=== PATIENT | male | born 1965 | race Caucasian/White ===

== ENCOUNTER 2016-07-01 11:54 | Emergency (ER) | payer MEDICAID ==
--- NOTE | 2016-07-01 12:54 | DX ---
Right thumb 3 views HISTORY: Pain following trauma 3 days ago. FINDINGS: Sesamoid bone at the radial side of the MCP joint is hypertrophied. No fracture or dislocat ion. No radiopaque foreign body. IMPRESSION: Negative.
[2016-07-01] MEDS ORDERED: ERYTHROMYCIN 0.5% 1 GM OPHT.OINT EACHEYE ONE (13:02)
--- NOTE | 2016-07-01 13:06 | EDPHY ---
HPI/HX/ROS/PE/MDM Narrative: Chief complaint: Eye irritation and right thumb pain HPI: 50-year-old male presenting complaining of bilateral eye irritation for the last 2-3 days. He has woken up with crusting in his eyes which is yellow- greenish. It started in his left eye about 3 days ago insert progressed to his right eye 2 days ago. No vision changes. He has not been rubbing his eyes. He is also complaining of some pain in his right thumb. Patient states he hyperextended this when he was putting his hand was backpack looking for something. This occurred 3 days ago. He took some Tylenol this morning. No prior injuries. No fevers or chills. No chest pain or shortness of breath. No numbness weakness or tingling. No headaches. ROS: 10 point Review of Systems is negative except as noted in the HPI. Physical exam: Gen: Awake, Alert, No Distress HEENT: Nose: no rhinorrhea Eyes: PERRLA, EOMI, bilateral injection with limbic sparing. There is yellowish discharge. Anterior chambers are clear Ext: no edema, right thumb tenderness at the PIP joint over the proximal phalanx. He has full range of motion without pain. No other hand tenderness. The pain in the anatomic snuffbox. Sensations intact in the radial, median, and ulnar nerve distribution. Cap refills less than 2 seconds Skin: no rash Neuro: CN II-XII intact, Sensation grossly intact, Strength 5/5 in bilateral upper and lower extremities ED Course: Right thumb x-ray: Negative for acute fracture per my interpretation. MDM: 42-year-old male with bilateral likely viral conjunctivitis and right thumb sprain. Will give him erythromycin eye ointment every 4 hours until the tube is gone. Will refer him to follow up with the [facility]. General Time Seen by Provider: 07/01/16 12:55 Initial Vital Signs: Initial Vital Signs Temperature (C) 36.3 C 07/01/16 12:04 Heart Rate 91 07/01/16 12:04 Respiratory Rate 16 07/01/16 12:04 Blood Pressure 107/63 07/01/16 12:04 O2 Sat (%) 93 07/01/16 12:04 O2 Delivery Mode Room Air Allergies/Adverse Reactions: Penicillins Allergy (Verified 07/01/16 12:05) Home Medications: Medication Instructions Recorded Erythromycin 0.5% 1 rachna [employer] Q6HRS #1 opht.oint 07/01/16 Departure - Departure Disposition: Home, Routine, Self-Care Clinical Impression: Conjunctivitis, Thumb sprain Condition: Good Instructions: Conjunctivitis (ED), Finger Sprain (ED) Additional Instructions: You may take Tylenol and acetaminophen for her thumb pain. Apply erythromycin eye ointment to both eyes every 4 hours while awake until the tube is gone. Follow up with the [facility] in 3-4 days if symptoms are not improved. Referrals: NONE *PRIMARY CARE P,. [Primary Care Provider] - As per Instructions [facility] [Outside] - As per Instructions Prescriptions: Erythromycin 0.5% 1 rachna [employer] Q6HRS #1 opht.oint
[2016-07-01 13:27] VITALS: BP 118/76; PULSE 84; RESP 17; TEMP 98.2; O2SAT 95
== END 2016-07-01 13:26 | disposition home or self-care (01) ==
DX: S63.601A Unspecified sprain of right thumb, initial encounter (principal); H10.9 Unspecified conjunctivitis; X58.XXXA Exposure to other specified factors, initial encounter
CPT/HCPCS: L3807